=== PATIENT | male | born 1995 | race Caucasian/White ===

== ENCOUNTER 2016-11-24 00:07 | Emergency (ER) | payer MEDICAID, OTHER ==
[~2016-11-24] VITALS: Ht 193 cm; Wt 70.5 kg
[2016-11-24 00:16] VITALS: BP 122/80; PULSE 96; RESP 18; O2SAT 99
--- NOTE | 2016-11-24 00:46 | ED.REPORT ---
HPI-Abd Pain M Under 40 Date of Service Nov 24, 2016 ED Provider: Jd Barajas DO Pt is a 21 y.o. male who presents to the ED accompanied by his girlfriend c/o severe LUQ abdominal pain onset today. Pt reports associated nausea, vomiting, diarrhea, throat pain, and rectal bleeding. He denies a fever and recent travel. His girlfriend states that she was sick last week but with a throat infection. Nursing Notes Stated Complaint: RECTAL BLEEDING/ ABD/HEADACHE Chief Complaint: Male Abdominal Pain Allergies: Coded Allergies: Penicillins (Verified Allergy, Severe, Anaphylaxis, 02/16/16) No Active Prescriptions or Reported Meds General Time Seen by MD: 00:46 Chief Complaint Abdominal pain Hx Obtained From: Patient Arrived By: Walk-in Sudden in Onset?: Yes Onset Occurred: 9 - 12 hours ago Symptom Duration: Since onset Location: : LUQ Quality: Painful Severity: Current: Severe Recent Healthcare: No recent doctor visit, No recent hospitalization Similar Sx Previous: No Past Medical History Past Medical History None reported. Past Surgical History None reported. Family History Father because of EtOH abuse Smoking History Current Every Day Smoker, Unknown if Ever Smoker Social History Alcohol Use: Denies alcohol use Drug Use: THC, Other Other Social History: Local resident Occupation lives with roommates, works at [employer] for 6 weeks. 02/16/2016 Ambulatory Status Independent Review of Systems Rectal bleeding Constitutional: Denies: Fever GI: Reports: Abdominal pain, Diarrhea, Nausea, Vomiting Complete sys rev & neg: except as marked. Physical Exam Initial Vital Signs Vital Signs (First) Date Time Temp Pulse Resp B/P Pulse Ox O2 Delivery O2 Flow Rate FiO2 11/24/16 00:16 37.1 96 18 122/80 99 Room Air Initial VS: Reviewed Head / Eyes: Atraumatic, Normocephalic Extremities: Vascular intact, Neuro intact Skin: Warm, Dry, No cyanosis Neurologic: Alert, Oriented, Nonfocal Psychiatric: Mood/affect normal, Behavior normal, Normal thought content General/Constitutional: Awake, Alert, Well developed, Well hydrated, Well nourished, Not toxic appearing Appearance / Presentation: Positive: Uncomfortable Respiratory / Chest: Atraumatic, Breath sounds NL, No respiratory distress Cardiovascular: Heart rate NL, Regular rhythm, Heart sounds NL, Peripheral circulation NL Abdomen: Atraumatic, Soft, Non-tender, No guarding, No rebound, No distention Bowel Sounds / Distention: Positive: Bowel sounds hyperactive Back: Atraumatic ENT: Atraumatic, Airway patent, Mucous membranes moist, Pharynx NL Interpretation & Diagnostics Lab Results Interpretation Result Diagram: 11/24/16 0046 11/24/16 0046 Test 11/24/16 00:46 11/24/16 00:48 11/24/16 01:28 White Blood Count 7.7th/mm3 (3.8-10.1) Red Blood Count 5.57mil/mm3 (4.40-5.80) Hemoglobin 16.5g/dL (13.8-17.2) Hematocrit 46.4% (41.0-50.0) Mean Corpuscular Volume 83.3fL (81-100) Mean Corpuscular Hemoglobin 29.6pg (27.0-35.0) Mean Corpuscular Hemoglobin Concent 35.6% (32.0-37.0) Red Cell Distribution Width 13.1% (12.3-15.4) Platelet Count 230bil/L (150-400) Neutrophils (%) (Auto) 70.6% (40-74) Lymphocytes (%) (Auto) 17.1% (14-46) Monocytes (%) (Auto) 11.0% (4-12) Eosinophils (%) (Auto) 1.0% (0-5) Basophils (%) (Auto) 0.3% (0-3) Sodium Level 137mEq/L (134-144) Potassium Level 3.8mEq/L (3.5-5.2) Chloride Level 101mEq/L (97-108) Carbon Dioxide Level 24mmol/L (18-29) Blood Urea Nitrogen 15mg/dL (6-20) Creatinine 0.88mg/dL (0.76-1.27) Estimat Glomerular Filtration Rate 116mL/min (>59) Glucose Level 100mg/dL (60-99) Lactic Acid Level 1.2mmol/L (0.4-2.0) Calcium Level 9.1mg/dL (8.5-10.1) Total Bilirubin 0.4mg/dL (0.0-1.2) Aspartate Amino Transf (AST/SGOT) 16U/L (0-50) Alanine Aminotransferase (ALT/SGPT) 12U/L (0-44) Alkaline Phosphatase 81U/L (25-150) Total Protein 7.2g/dL (6.4-8.4) Albumin 4.2g/dL (3.4-5.0) Lipase 23U/L (13-60) Hold Purple Top Tube Received (Received) Hold Blue Top Tube Received (Received) Hold Red Top Tube Received (Received) Hold Glenwood Top Tube Received (Received) Hold Meneses Top Tube Received (Received) Urine Color Dark yellow (YELLOW) Urine Appearance Slightly cloudy Urine pH 6.0 (5.0-8.0) Urine Specific Hunter 1.041 (1.003-1.035) Urine Protein Negativemg/dL (NEG,TRACE) Urine Glucose (UA) Negativemg/dL (NEGATIVE) Urine Ketones Tracemg/dL (NEGATIVE) Urine Occult Blood Negative (NEGATIVE) Urine Nitrite Negative (NEGATIVE) Urine Bilirubin Negative (NEGATIVE) Urine Urobilinogen Normalmg/dL (NORMAL) Urine Leukocyte Esterase Negative (NEGATIVE) Urine RBC 0-2/hpf (0-2) Urine WBC 0-5/hpf (0-5) Urine Epithelial Cells Occasional/hpf (NONE-MOD) Urine Crystals Oxalic acid crystals (NONE Urine Bacteria Few/hpf (NONE-FEW) Urine Hyaline Casts None/lpf (NONE) Urine Granular Casts None seen (NONE SEEN) Urine Waxy Casts None seen (NONE SEEN) Urine Red Blood Cell Casts None seen (NONE SEEN) Urine White Blood Cell Casts None seen (NONE SEEN) Urine Mucus Present (None Seen) Urine Trichomonas None seen (NONE SEEN) Urine Yeast None (NONE SEEN) Urinalysis Comment None Urine Culture Reflexed Not indicated CBC Interpretation CBC normal BMP / CMP Interpretation BMP/CMP normal Urinalysis Interpretation Positive glucose Re-Eval/Medical Decision Med Decision/Clinical Course This is a healthy 21-year-old male who presents with vomiting and diarrhea. He states he has crampiness to say with the diarrhea. His stool has become blood streaked tonight. No hematemesis or bright red blood or melanotic stools. No recent antibiotics or recent travel. On examination his vitals were normal. His abdomen was soft and not at all tender. He was fluid resuscitated symptomatically treated. A stool sample is obtained. After treatment he felt better. His abdomen remained soft and not at all tender. CBC was normal CMP was normal. Stool studies are pending. His exam was benign. Normal labs. Emergent CT scan felt to be not indicated. Be treated symptomatically and will have a recheck tomorrow. Follow up with a stool sample as well. Evidently the stool will be tested in the morning. Source of Hx: Old records Re-Evaluation/Progress : Time of Eval: 02:08 Patient Status: Condition improved Re-Evaluation/Progress Note: Pt rechecked. Pt states he is feeling improved. Discussed plan for dicharge, pt understands and agrees with plan. Counseled Regarding: Diagnosis, Lab results, Need for follow-up, When/why to return to ED Patient Discharge & Departure Primary Impression: Gastroenteritis Additional Impression: Abdominal pain Abdominal location: generalized Qualified Code: R10.84 - Generalized abdominal pain Disposition: Home Discharge Condition All VS Reviewed: Yes Condition: Stable Patient Instructions: Acute Abdominal Pain (ED), Gastroenteritis (ED) Additional Instructions: The stool sample will be tested tomorrow morning. I would like you to call the emergency department by 10 AM and ask for the stool sample results. . If you have certain infection you will need to be on antibiotics. For tonight I would like to drink lots of liquids such as Gatorade. For the crampy pain you may take 1-2 Shawmut every 6 hours. For the nausea you may take 1 Zofran every 8 hours. I think you should be rechecked tomorrow. Go to the urgent care or see your doctor or come back here. Do not drive tonight. Do not drive or drink alcohol or consume acetaminophen while taking the Shawmut. Referrals: Dakota Pan MD (PCP) Dash Attestation Portions of this note were transcribed by Rusty Gallegos. I, Dr. Barajas personally performed the history, physical exam and medical decision-making; I reviewed and confirmed the accuracy of the information in the transcribed note. Signed by : Dash Resendiz, 11/24/16 and 0257. copies to: Dakota Pan MD, Todd P DO Nov 24, 2016 00:46 RUSTY GALLEGOS Nov 24, 2016 00:54
[2016-11-24] MEDS ORDERED: Ondansetron 2 mg/mL 2 mL Inj IVPUSH PRN (00:50)
[2016-11-24] MEDS ORDERED: 0.9% Sodium Chloride 1,000 ML IV ONE (00:50)
[2016-11-24] MEDS ORDERED: HYDROmorphone 0.5 mg/0.5 mL iSecure Syringe IVPUSH PRN (00:50)
[2016-11-24 01:50] LABS: APPEARANCE,URINE SLIGHTLY CLOUDY (CLEAR,HAZY); COLOR,URINE DARK YELLOW (YELLOW)
[2016-11-24 01:51] LABS: OCCULT BLOOD,URINE NEGATIVE (NEGATIVE); UROBILINOGEN,URINE NORMAL (NORMAL)
[2016-11-24 01:55] LABS: BASOPHILS % (AUTO) 0.3 % (0-3); Mean Corpuscular Hemoglobin 29.6 pg (27.0-35.0); Mean Corpuscular Volume 83.3 fL (81-100); NEUTROPHILS % (AUTO) 70.6 % (40-74); Platelet Count 230 bil/L (150-400)
[2016-11-24] MEDS ORDERED: _HYDROcodone/APAP 5-325 mg Tablet PO PRN (02:10)
[2016-11-24] MEDS ORDERED: _Ondansetron ODT 4 mg Tablet PO PRN (02:10)
[2016-11-24] MEDS: 0.9% Sodium Chloride 1,000 ML IV ONE ×2 (02:48→03:05)
[2016-11-24 03:46] VITALS: BP 110/64; PULSE 65; RESP 18; O2SAT 99
== END 2016-11-24 03:49 | disposition home or self-care (01) ==
LOC: SED 00:07
DX: K52.9 Noninfective gastroenteritis and colitis, unspecified (principal); R07.0 Pain in throat; F17.200 Nicotine dependence, unspecified, uncomplicated; Z88.0 Allergy status to penicillin
CPT/HCPCS: 36415; 80053; 81000; 83605; 83690; 85025; 87507; 96361; 96374; 96375; 99285; J1170; J2405; J7030

== ENCOUNTER 2017-01-10 06:22 | Emergency (ER) | payer OTHER ==
[~2017-01-10] VITALS: Ht 190.5 cm; Wt 68.2 kg
[2017-01-10 06:31] VITALS: BP 137/77; PULSE 73; RESP 16; O2SAT 99
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
[2017-01-10] MEDS ORDERED: Trimethoprim-Sulfa 160 mg-800 mg Tablet PO ONE (07:00)
[2017-01-10] MEDS ORDERED: Bacitracin Ointment Packet TOPICAL ONE (07:00)
[2017-01-10] MEDS ORDERED: Bupivacaine 0.5%/EPI 50 mL Inj ONE (07:06)
[2017-01-10] MEDS ORDERED: SULF1TAB7 PO (07:44)
[2017-01-10] MEDS ORDERED: CEPH500C PO (07:44)
[2017-01-10 07:50] VITALS: BP 137/77; PULSE 73; RESP 16; O2SAT 99
== END 2017-01-10 07:50 | disposition home or self-care (01) ==
LOC: SED 06:22
DX: L02.411 Cutaneous abscess of right axilla (principal); F12.10 Cannabis abuse, uncomplicated; Z88.0 Allergy status to penicillin

== ENCOUNTER 2017-01-13 18:30 | Emergency (ER) | payer OTHER ==
[~2017-01-13] VITALS: Ht 190.5 cm; Wt 68.2 kg
[~2017-01-13 18:30] MED LIST: CEPH500C PO; SULF1TAB7 PO
[2017-01-13 18:32] VITALS: BP 127/70; PULSE 85; RESP 16; O2SAT 100
--- NOTE | 2017-01-13 19:14 | ED.REPORT ---
HPI-Psychiatric Illness Date of Service Jan 13, 2017 ED Provider: Elda Caballero MD Patient is a 21 year old male with a history of polysubstance abuse who presents to the ED seeking medical clearance for [facility]. The patient admits to using IV heroin, methamphetamine and marijuana. Patient states that he is "sick of using" but will not elaborate further on his drug use. The patient states that he is hearing voices in his head, which is normal for him. He states that this is his conscience. He denies a mental health diagnosis. Patient denies suicidal ideation or homicidal ideations. The patient has a bed that is being held for him at available at [facility]. Patient is brought in by his mother, who states that she helped him organize his stay at [facility]. Patient does not have any medical complaints at this time. Nursing Notes Stated Complaint: CRISIS Chief Complaint: Substance Abuse Nursing Notes Reviewed: Yes Allergies: Coded Allergies: Penicillins (Verified Allergy, Severe, Anaphylaxis, 01/13/17) Scheduled PRN Ondansetron ODT (Ondansetron ODT) 4 Mg Tab.rapdis 4 MG PO Q6H PRN PRN For Nausea General Time Seen by MD: 18:48 Chief Complaint Other (drug detox) Hx Obtained From: Patient, Other family... 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 Family History Father because of EtOH abuse Smoking History Unknown if Ever Smoker Social History Alcohol Use: Denies alcohol use Drug Use: IV drugs, Meth, THC, Other Other Social History: Local resident Occupation lives with roommates, works at [employer] for 6 weeks. 02/16/2016 Ambulatory Status Independent Review of Systems Constitutional: Denies: Chills, Fever GI: Denies: Nausea, Vomiting Psychiatric: Reports: Hallucinations, auditory, Denies: Homicidal ideation, Suicidal ideation Complete sys rev & neg: except as marked. Physical Exam Initial Vital Signs Vital Signs (First) Date Time Temp Pulse Resp B/P Pulse Ox O2 Delivery O2 Flow Rate FiO2 01/13/17 18:32 36.2 85 16 127/70 100 Room Air Initial VS: Reviewed Head / Eyes: Atraumatic, Normocephalic, PERRL ENT: Conjunctiva normal, No scleral icterus Neck: Supple, Full range of motion Respiratory: Breath sounds normal, Clear to auscultation, No respiratory distress Cardiovascular: Regular rate & rhythm, Heart sounds normal Skin: Warm, Dry, No cyanosis General/Constitutional: Awake, Alert Appearance / Presentation: Positive: Hygiene poor Neurologic: Oriented X3, Speech NL, No motor deficits, No sensory deficits Psychiatric: Not suicidal, Not homicidal Abnormal Thinking / Perception: Positive: Hallucinations, auditory (patient admits to hearing voices) Interpretation & Diagnostics Lab Results Interpretation Test 01/13/17 19:00 Hold Urine Received (Received) Re-Eval/Medical Decision Med Decision/Clinical Course 21-year-old male with past medical history of polysubstance abuse here requesting labs since that he can go to [facility]. Patient is hearing voices, but at this time, I do not feel he is gravely disabled. He has no complaint at this time and has spoken with the social worker masters and is amenable to discharge. His bed is ready at [facility] at 9 AM tomorrow morning. Source of Hx: Old records Re-Evaluation/Progress : Time of Eval: 19:25 Patient Status: Condition improved Re-Evaluation/Progress Note: Patient understands and agrees with the plan to be discharged home. He will go to [facility] at 9am tomorrow. Discharge instructions and follow-up discussed. All questions were addressed. Return to the ED warnings given. Consultation : Consulted With: key worker Call Returned at: 19:19 Note: Spoke with the ED INDUSTRIAL GAS SERVICE HELPER, who states that the patient's bed is available at 9am tomorrow morning. Counseled Regarding: Diagnosis, Lab results, Need for follow-up, When/why to return to ED Discharge & Departure Impression: Primary Impression: Polysubstance abuse Additional Impressions: Narcotic abuse Heroin abuse )( Condition at Discharge: No danger to self, No danger to others, No suicidal ideation, No homicidal ideation Disposition: Home Discharge Condition All VS Reviewed: Yes Condition: Stable Patient Instructions: Narcotic Abuse (ED) Additional Instructions: You have a bed at [facility] tomorrow at 9am. Go there tomorrow morning as planned. You have been prescribed Zofran, use as needed for nausea. Return to the Emergency Department if you develop vomiting, diarrhea, chest pain , shortness of breath, or any other new or concerning symptoms. Your blood pressure was elevated in the Emergency Department today. You should follow-up with your primary care physician about your blood pressure, as you may need to be started on blood pressure medication. Referrals: [facility] Scribe Attestation Portions of this note were transcribed by Jessica Briones. I, Dr. Caballero personally performed the history, physical exam and medical decision-making; I reviewed and confirmed the accuracy of the information in the transcribed note. Signed by: Dash Leal, 01/13/20179 Elda Caballero MD Jan 13, 2017 19:14 Jessica Briones Jan 13, 2017 19:22
[2017-01-13] MEDS ORDERED: ONDA4TAB12 PO (19:34)
[2017-01-13 19:42] VITALS: BP 127/70; PULSE 85; RESP 16; O2SAT 100
== END 2017-01-13 19:42 | disposition home or self-care (01) ==
LOC: SED 18:30
DX: F11.10 Opioid abuse, uncomplicated (principal); F15.20 Other stimulant dependence, uncomplicated; F12.10 Cannabis abuse, uncomplicated; Z88.0 Allergy status to penicillin

== ENCOUNTER 2017-01-20 11:43 | Emergency (ER) | payer OTHER ==
[~2017-01-20] VITALS: Ht 190.5 cm; Wt 70.5 kg
[~2017-01-20 11:43] MED LIST changes: -CEPH500C PO; +ONDA4TAB12 PO; -SULF1TAB7 PO
[2017-01-20 11:44] VITALS: BP 146/85; PULSE 87; RESP 15; O2SAT 97
--- NOTE | 2017-01-20 11:50 | ED.REPORT ---
HPI-Rash / Abscess Date of Service Jan 20, 2017 ED Provider: Dr. Mchugh Pt is a 21 y/o male w/ a hx of IV drug abuse presenting to the ED c/o left jaw swelling and pain onset about 3 days ago. His mother attempted to drain his swelling last night from the outside with bloody purulent fluid expressed. Pt denies fever, chills, nausea, vomiting, dysphagia. He had one other skin infection previously on the right jaw which he states was from a spider bite and was not MRSA positive. Nursing Notes Stated Complaint: SWOLLEN JAW Chief Complaint: Skin Rash/Abscess Nursing Notes Reviewed: Yes Allergies: Coded Allergies: Penicillins (Verified Allergy, Severe, Anaphylaxis, 01/20/17) Scheduled Cephalexin (Keflex) 500 Mg Capsule 500 MG PO QID Sulfamethoxazole/Trimeth 800-160 mg (Bactrim DS) 1 Each Tablet 1 TABLET PO BID Scheduled PRN Hydrocodone-Acetaminophen 5-325 mg (Hydrocodone-Acetaminophen 5-325 mg) 1 Each Tablet 1 TABLET PO Q4H PRN PRN For Pain Ondansetron ODT (Ondansetron ODT) 4 Mg Tab.rapdis 4 MG PO Q6H PRN PRN For Nausea General Time Seen by MD: 11:50 Chief Complaint Abscess Hx Obtained From: Patient Arrived By: Walk-in Onset Occurred: 3 days ago Symptom Duration: Since onset Location: : Head/face Quality: Painful Severity: Current: Moderate Severity: Maximum: Moderate Similar Sx Previous: Yes Past Medical History Past Medical History Notes: ED visit for diarrhea 10/2016 (cryptosporidium positive) Past Medical History IV heroin and methamphetamine abuse Past Surgical History None reported. Family History Father because of EtOH abuse Smoking History Current Every Day Smoker Social History Alcohol Use: Denies alcohol use Drug Use: IV drugs, Meth, THC, Other Other Social History: Local resident Occupation lives with roommates, works at [employer] for 6 weeks. 02/16/2016 Ambulatory Status Independent Review of Systems Review of Systems Note: +facial swelling and pain Constitutional: Denies: Chills, Fever GI: Denies: Abdominal pain, Dysphagia, Nausea, Vomiting Complete sys rev & neg: except as marked. Physical Exam Initial Vital Signs Vital Signs (First) Date Time Temp Pulse Resp B/P Pulse Ox O2 Delivery O2 Flow Rate FiO2 01/20/17 11:44 36.4 87 15 146/85 97 Room Air Initial VS: Reviewed Head / Eyes: Atraumatic, Normocephalic, PERRL Neck: Supple, Full range of motion Respiratory: Breath sounds normal, Clear to auscultation, No respiratory distress Cardiovascular: Regular rate & rhythm, Heart sounds normal, Intact distal pulses Abdomen / GI: Soft, No distention Extremities: Vascular intact, Neuro intact, No swelling, No tenderness Neurologic: Alert, Oriented, Nonfocal Psychiatric: Mood/affect normal, Behavior normal, Normal thought content ENT: Atraumatic, Airway patent, Mucous membranes moist, Pharynx NL, No pooling of secretions, Gums/dentition NL Swelling and induration of the left cheek. Small area of ulceration No tenderness to gums Procedures Incision & Drainage Abscess I & D Abscess: Abscess confirmed with US prior to procedure Using an 18 gauge needle the abscess was aspirated and sent for culture. Time: 13:00 Procedure Performed by: ED physician Consent / Setup / Site Prep: Consent from patient, Time-out performed, Hand hygiene observed, Stand sterile technique Location of Abscess: Left cheek Skin Preparation Agent: Shurclens Local Anesthesia: Lidocaine w epi 1% Pus Drained: Medium, Purulent discharge, Bloody Post-Procedure / Complications: Culture obtained, No complications, Condition improved, Tolerated procedure well, Patient stable Re-Eval/Medical Decision Med Decision/Clinical Course As patient had an abscess on the cheek I did not want to use an 11 blade and leave it open with packing. I am trying to prevent a large scar and I believe that given the small size of the abscess a full aspiration followed by good antibiotic therapy should completely resolve his infection. Patient felt much better after the abscess was drained and was agreeable with the plan. He was concerned about getting his medications paid for and after working with social work he was able to identify his insurance number. He has a history of anaphylactic type reaction to antibiotics but he has had Keflex and Bactrim before and has not had any reaction. He will follow-up with the urgent care/ER for recheck as he does not have a PCP locally Re-Evaluation/Progress : Time of Eval: 13:17 Re-Evaluation/Progress Note: Pt rechecked. Informed pt of plan for treatment. Pt understands and agrees with plan for treatment. F/U and RTER warnings given. All questions addressed. Counseled Regarding: Diagnosis, Need for follow-up, When/why to return to ED Discharge & Departure Impression: Primary Impression: Abscess of cheek Disposition: Home Discharge Condition All VS Reviewed: Yes Condition: Stable Patient Instructions: Abscess (ED) Additional Instructions: The abscess was aspirated today and sent for culture. Take Bactrim and Keflex as prescribed. You can use ibuprofen as needed for pain , hydrocodone for breakthrough pain Return to the emergency department for signs of worsening infection: worsening swelling, pain, redness, discharge, high fever, persistent vomiting, profound weakness, trouble swallowing, trouble breathing, or for other concerning symptoms. Follow-up with a primary care doctor or Urgent Care early next week for a recheck. Referrals: [facility] Scribe Attestation Portions of this note were transcribed by Luciano Gavin. I, Dr. Mchugh personally performed the history, physical exam and medical decision-making; I reviewed and confirmed the accuracy of the information in the transcribed note. Signed by Dash Stevenson, 01/20/17 - 1218 Orville Mchugh DO Jan 20, 2017 11:50 LUCIANO GAVIN Jan 20, 2017 12:10
[2017-01-20] MEDS ORDERED: Lidocaine 1%-Epi 1:100,000 20 mL Inj ONE (12:29)
[2017-01-20] MEDS ORDERED: HYDROcodone-APAP 5-325 mg Tablet PO ONE (13:15)
[2017-01-20] MEDS ORDERED: Trimethoprim-Sulfa 160 mg-800 mg Tablet PO ONE (13:15)
[2017-01-20] MEDS ORDERED: SULF1TAB7 PO (13:18)
[2017-01-20] MEDS ORDERED: CEPH-512 PO (13:18)
[2017-01-20] MEDS ORDERED: HYDR-4003 PO (13:18)
== END 2017-01-20 13:45 | disposition home or self-care (01) ==
LOC: SED 11:43
DX: L02.01 Cutaneous abscess of face (principal); F17.200 Nicotine dependence, unspecified, uncomplicated; Z88.0 Allergy status to penicillin
CPT/HCPCS: 10060; 87070; 87075; 87205; 96372; 99284; J1885

== ENCOUNTER 2017-04-12 22:16 | Emergency (ER) | payer OTHER ==
[~2017-04-12 22:16] MED LIST changes: +CEPH-512 PO; +HYDR-4003 PO; +SULF1TAB7 PO
== END 2017-04-12 23:07 | disposition left against medical advice (07) ==
LOC: SED 22:16
DX: Z00.8 Encounter for other general examination (principal); Z53.21 Procedure and treatment not carried out due to patient leaving prior to being seen by health care provider

== ENCOUNTER 2017-04-12 23:56 | Inpatient (IN) | payer MEDICAID, OTHER ==
[~2017-04-12] VITALS: Ht 193 cm; Wt 67.7 kg
[2017-04-13 00:01] VITALS: BP 113/62; PULSE 109; RESP 14; O2SAT 100
--- NOTE | 2017-04-13 00:09 | ED.REPORT ---
HPI-Psychiatric Illness Date of Service Apr 13, 2017 ED Provider: Dr. Pinto Pt is a 21 year old male with a hx of IV drug use and depression presenting to the ED for a psych evaluation requesting to go to [facility]. Pt reports that he just got out of rehab in [place] for 2 and a half weeks, and left early [facility] 1 month ago and relapsed. He states that he is homeless and tired of being outside. Pt last used heroin 4 hours ago. He denies any other symptoms at this time. He is not being seen by a mental health professional as an outpatient. Pt states that he has intentionally overdosed on heroin in the past. Nursing Notes Stated Complaint: PSYCH EVAL Chief Complaint: Psychiatric Complaint Nursing Notes Reviewed: Yes Allergies: Coded Allergies: Penicillins (Verified Allergy, Severe, Anaphylaxis, 01/20/17) Scheduled Cephalexin (Keflex) 500 Mg Capsule 500 MG PO QID Sulfamethoxazole/Trimeth 800-160 mg (Bactrim DS) 1 Each Tablet 1 TABLET PO BID Scheduled PRN Hydrocodone-Acetaminophen 5-325 mg (Hydrocodone-Acetaminophen 5-325 mg) 1 Each Tablet 1 TABLET PO Q4H PRN PRN For Pain Ondansetron ODT (Ondansetron ODT) 4 Mg Tab.rapdis 4 MG PO Q6H PRN PRN For Nausea General Time Seen by MD: 00:08 Chief Complaint Other (Substance abuse) Hx Obtained From: Patient Arrived By: Walk-in Onset Occurred: Just prior to arrival Symptom Duration: Since onset Severity: Current: No pain currently Severity: Maximum: No pain Recent Healthcare: No recent doctor visit, No recent hospitalization Similar Sx Previous: Yes Risk-Psychiatric Illness Suicide Risk Stratification Suicide Risk Factors - Adult: : Prior psych admission: Substance abuseNo: Alcohol use RF Statements: Risk factors reviewed Past Medical History Past Medical History Notes: ED visit for diarrhea 10/2016 (cryptosporidium positive) Past Medical History IV heroin Depression Previous suicide attempts by heroin overdose Past Surgical History None reported. Family History Father because of EtOH abuse Smoking History Current Every Day Smoker Social History Alcohol Use: Denies alcohol use Drug Use: IV drugs, THC, Other (Heroin) Other Social History: Local resident Occupation lives with roommates, works at [employer] for 6 weeks. 02/16/2016 Ambulatory Status Independent Review of Systems Constitutional: Denies: Weakness - generalized Respiratory: Denies: Wheezing GI: Denies: Vomiting Psychiatric: Reports: Agitation Complete sys rev & neg: except as marked. Physical Exam Initial Vital Signs Vital Signs (First) Date Time Temp Pulse Resp B/P Pulse Ox O2 Delivery O2 Flow Rate FiO2 04/13/17 00:01 36.3 109 14 113/62 100 04/13/17 03:33 Room Air Initial VS: Reviewed, Vital signs abnormal Head / Eyes: Atraumatic, Normocephalic, PERRL ENT: Mucous membranes moist, Conjunctiva normal, No scleral icterus Neck: Supple, Non-tender, Full range of motion Respiratory: Breath sounds normal, Clear to auscultation, No respiratory distress Cardiovascular: Regular rate & rhythm, Heart sounds normal, Intact distal pulses Abdomen / GI: Soft, Non-tender, No guarding, No rebound, No distention Extremities: Vascular intact, Neuro intact, No swelling, No tenderness General/Constitutional: Awake Alertness: Positive: Somnolent Sleeping soundly but aroused with difficulty. Neurologic: Oriented X3, Speech NL, No motor deficits, No sensory deficits, Memory NL Psychiatric: Not homicidal Abnormal Mood/Affect: Positive: Depressed Abnormal Thinking / Perception: Positive: Suicidal, no plan Skin: Warm, Dry Abrasion on left forehead. Several pick sores on chin and neck. No abscesses. Interpretation & Diagnostics Lab Results Interpretation Result Diagram: 04/13/17 0210 04/13/17 0210 Test 04/13/17 02:10 04/13/17 02:15 White Blood Count 8.7th/mm3 (3.8-10.1) Red Blood Count 4.66mil/mm3 (4.40-5.80) Hemoglobin 13.4g/dL (13.8-17.2) Hematocrit 39.3% (41.0-50.0) Mean Corpuscular Volume 84.3fL (81-100) Mean Corpuscular Hemoglobin 28.8pg (27.0-35.0) Mean Corpuscular Hemoglobin Concent 34.1% (32.0-37.0) Red Cell Distribution Width 13.3% (12.3-15.4) Platelet Count 226bil/L (150-400) Neutrophils (%) (Auto) 64.4% (40-74) Lymphocytes (%) (Auto) 19.9% (14-46) Monocytes (%) (Auto) 12.6% (4-12) Eosinophils (%) (Auto) 3.0% (0-5) Basophils (%) (Auto) 0.1% (0-3) Sodium Level 139mEq/L (134-144) Potassium Level 4.1mEq/L (3.5-5.2) Chloride Level 101mEq/L (97-108) Carbon Dioxide Level 24mmol/L (18-29) Blood Urea Nitrogen 17mg/dL (6-20) Creatinine 0.53mg/dL (0.76-1.27) Estimat Glomerular Filtration Rate 209mL/min (>59) Glucose Level 104mg/dL (60-99) Calcium Level 8.7mg/dL (8.5-10.1) Total Bilirubin 0.3mg/dL (0.0-1.2) Aspartate Amino Transf (AST/SGOT) 18U/L (0-50) Alanine Aminotransferase (ALT/SGPT) 14U/L (0-44) Alkaline Phosphatase 78U/L (25-150) Total Protein 6.6g/dL (6.4-8.4) Albumin 3.9g/dL (3.4-5.0) Thyroid Stimulating Hormone (TSH) 0.686uIU/mL (0.450-4.500) Hold Meneses Top Tube Received (Received) Hold Urine Received (Received) Lab values outside NL range: no clinical significance. Re-Eval/Medical Decision Med Decision/Clinical Course 21-year-old male who has been overly stressed by a multitude of psychosocial stressors including living on the street, heroin use, and depression with suicidal ideation. Screening labs were all unremarkable. His family reportedly talked to [facility] yesterday there may be of benefit, there. Recommend contacting [facility] for evaluation treatment. Re-Evaluation/Progress : Time of Eval: 06:00 Patient Status: Condition improved Re-Evaluation/Progress Note: Care transferred to Dr. Smith Counseled Regarding: Diagnosis, Lab results, Need for follow-up, When/why to return to ED Discharge & Departure Impression: Primary Impression: Depression Depression Type: reactive depression Qualified Code: F32.9 - Major depressive disorder, single episode, unspecified Additional Impressions: Opioid dependence Substance use status: uncomplicated Qualified Code: F11.20 - Opioid dependence, uncomplicated Methamphetamine abuse Disposition: ADMITTED TO HOSPITAL Discharge Condition All VS Reviewed: Yes Condition: Improved Referrals: [facility] (PCP) [facility] Care Transferred to: Care Transferred to Dr. Smith Care Transferred at: 06:00 Dash Attestation Portions of this note were transcribed by Anabel Wu. I, Dr. Pinto personally performed the history, physical exam and medical decision-making; I reviewed and confirmed the accuracy of the information in the transcribed note. Signed by: Dash Hale, 04/13/17 and 0600. copies to: [facility] Brennan Pinto MD Apr 13, 2017 00:09 ANABEL WU Apr 13, 2017 00:55
[2017-04-13 02:27] LABS: BASOPHILS % (AUTO) 0.1 % (0-3); MONOCYTES % (AUTO) 12.6 % (4-12); Mean Corpuscular Hemoglobin 28.8 pg (27.0-35.0); Mean Corpuscular Volume 84.3 fL (81-100); NEUTROPHILS % (AUTO) 64.4 % (40-74); Platelet Count 226 bil/L (150-400)
[2017-04-13 03:33] VITALS: BP 106/56; PULSE 61; RESP 15; O2SAT 99
[2017-04-13 08:39] VITALS: BP 122/49; RESP 16; O2SAT 100
[2017-04-13 14:49] VITALS: BP 115/62; PULSE 65; RESP 20; O2SAT 98
[2017-04-13 20:21] VITALS: BP 117/59; PULSE 62; RESP 16; O2SAT 98
[2017-04-13] MEDS ORDERED: hydrOXYzine Pamoate 25 mg Capsule PO PRN (20:50)
[2017-04-13] MEDS ORDERED: Magnesium Hydroxide 10 mL Oral Concentration PO PRN (20:50)
[2017-04-13] MEDS ORDERED: Alum-Mag Hydrox-Simeth 30 mL Suspension PO PRN (20:50)
[2017-04-13] MEDS ORDERED: Benzocaine-Menthol Lozenge 2/Pkg PO PRN (20:50)
[2017-04-13] MEDS ORDERED: cloNIDine 0.1 mg Tablet PO PRN (20:55)
--- NOTE | 2017-04-14 00:51 | NUR ---
Nursing Admit note Pt arrival via wheelchair from our ED with security and ED staff at 2030. Pt authorized for three days through [facility]. Pt reporting life long hx of depression with increasing suicidal ideation. Pt reports two year history of homelessness and polysubstance abuse from late childhood. Father committed suicide by heroin. Pt reports he would commit suicide by heroin if he could afford it. Pt with one previous inpt tx at [facility] in [place] for dual diagnosis, but patient chose to leave AMA because it was to sabianism. Pt reports previous attempts in past but would not talk about it at this time. Pt signed all paperwork and agrees to remain safe. Pt Utox positive for meth, heroin, THC. Pt currently on zero medications. Pt denies prospects for housing. Pt rates anxiety at 5/10, depression 10/10, denies homicidal ideation or hallucination, would not rate suicidal ideation. Pt reports he does not withdrawal from street drugs. Pt changed into hospital attire and had snack before returning to room for sleep.
--- NOTE | 2017-04-14 03:06 | NUR ---
ADMIT/NOC OBS Pt arrived to unit at 2030 from our ER. He signed all paperwork and was oriented to unit. Affect flat, no eye contact, mumbled responses when addressed with minimal interaction. Asleep at 2200. Observed Q15 as ordered.
--- NOTE | 2017-04-14 09:24 | PCM.DIMED ---
Discharge Instructions Date of Service Apr 14, 2017 Dates of Hospitalization Apr 13, 2017 at 20:18 Discharge Diagnosis Discharge Diagnosis Polysubstance Use Disorder Opiates, Meth and THC Substance Induced Mood DO Diet Discharge Diet: No restrictions Activity Discharge Activity: No restrictions Reddy Arciniega DO Apr 14, 2017 09:23
[2017-04-14 12:02] VITALS: BP 127/76; PULSE 78; RESP 16
--- NOTE | 2017-04-14 13:07 | HP ---
[address] [address] HISTORY AND PHYSICAL PATIENT: HARRIETT WHITT V : 1995 MR#: [id number] ADMIT: 04/13/2017 JOB ID: [id number] IDENTIFICATION OF PATIENT: The patient is a 21-year-old male admitted on a voluntary basis through the emergency department with evidence of increasing concern of feelings of hopelessness, worthlessness and helplessness. The patient reportedly has a long-term history of polysubstance use and recently left AMA at a chemical dependency treatment program in [place]. The patient reportedly is homeless at this time but is open to considerations of additional interventions including options of Suboxone replacement. CHIEF COMPLAINT: "I just want to get out of here, this is not the right place for me." This per patient report. HISTORY OF PRESENT ILLNESS: As stated above, the patient is a 21-year-old male who reportedly was seen through the emergency department. He evidently was requesting a possible admission to [facility] dual diagnosis unit. The patient reportedly had identified that he had been struggling with thinking about wanting , kill himself and taking an overdose of heroin. He indicates that he has a long-term history of heroin addiction and uses 20-30 dollars per day. He reports that his last usage was within the past 24 hours. He readily identifies that he has been connected with [facility] in the past, outpatient programming and recommendation for advancement into [facility] followup. He indicated that once he got there he felt that it was way too anabaptism and he felt that it was something that he could not commit to. The patient readily identifies a willingness to consider additional options of Suboxone replacement therapy and I discussed at length possible institution through [facility] which has offices both in [place] and [place]. In reviewing his current status of depression, the patient openly admitted to feelings of hopelessness, worthlessness, helplessness. Identified long-term history of heroin addiction beginning in his early teens. He reports that he consumes 20-30 dollars per day. He admitted to usage of methamphetamine periodically and was unaware that his urine tox screen was positive for methamphetamine, but admitted to usage within the past 72 hours. He admitted to using 1-2 bowls of marijuana per day as well. The patient denied any expressed suicidal intent, plan at this time stating that if he can get the help for his drug problem he really knows that he will get back on track. He indicates that he has no prior history of psychiatric involvement. Denied any previous trials of psychotropic agents and is opposed to initiation of antidepressants. In meeting with the patient, I did feel that there was no grounds to pursue DMHP or [facility]ASH status and I have suggested a connection with the [facility] in [place] with transition to the [facility] for housing. The patient was agreeable for such and bus vouchers with information provided for followup was provided. PAST MEDICAL HISTORY: Is substantial for allergies to PENICILLIN. His current medications include none. He denies any recent surgeries, fractures, head trauma. REVIEW OF SYSTEMS: Was positive for some wound care. I will defer the reader to the emergency department report. PAST PSYCHIATRIC HISTORY: None. SOCIAL HISTORY: The patient is homeless, unemployed. He indicated that he has not graduated from high school, attended his senior year at [employer] while living with a grandmother who lives in [place] at this time. He denies any history of trauma abuse. He has limited contact with his family. He reports that his biological father committed suicide with overdose on heroin and that his mother has also struggled with chemical dependency issues. FAMILY HISTORY: Positive for the above information. DEVELOPMENT HISTORY: As noted. MENTAL STATUS EXAMINATION: General appearance: The patient was cooperative, polite. He admitted to a significant desire to discharge. He is willing to pursue outpatient interventions. His speech is of normal tone, frequency and volume. His mood is neutral. Affect was congruent. His thought process showed no evidence of racing thoughts, flight of ideas, loose or disconnected thinking. Thought content: He denied any evidence of expressed suicidal ideation, intent or plan. He admitted to thoughts of overdosing on heroin in the past but stated that as long as he can get help, he really does not feel that that is even an option. He denies any active hallucinations, delusions. He was alert, oriented to time and place. Attention and concentration intact. Memory intact in the short term, local company intermodal truck driver, recent. Insight and judgment are fair. IMPRESSIONS: AXIS I 1. Polysubstance use disorder with opiates, methamphetamine and THC. 2. Substance induced mood disorder. AXIS II Deferred. AXIS III None. AXIS IV Stressors are noted for chronic substance use. AXIS V Global assessment of functioning of current 40. PLANS: 1. Recommendations to discharge. 2. Follow up recommendations with [facility] [place] for Suboxone replacement therapies. Numbers and location were given to the patient to call on Sunday. 3. Referrals made to the [facility] for housing. 4. The patient was given a voucher for [facility] commute. Bus will be leaving at 2:10 this afternoon. 5. Confirmation was noted that mother will pecan picker the patient and bring to the [facility] station.
--- NOTE | 2017-04-14 13:12 | NUR ---
[id number]. nurs. Discharge note. Pt appeared to sleep for more than 8 hours last night and once up and then requesting discharge stating that he could maintain his safety. Pt discussed with his pxs and was provided with resource info re. prison and chem dep tx options in the area he wished to relocate to in [place] and providered order for discharge and completed discharge instruction. Pt spoke to his mother who agreed to provide transport to bus station, and spoke to staff stating that she believed that her son wanted to follow through with accessing help with chem. dep. and pt given bus ticket to [place]. Pt denying SI , stating will maintain safety completed safety plan in cursory manner with poor focus. Pt wanting to leave area due to px associations re. chem. dep. restless, discharged to await mothers arrival, and collect belonging from family and verbalized understanding of discharge plan, and discharged at 1130.
== END 2017-04-14 11:30 | disposition home or self-care (01) | DRG 897 ==
LOC: SED 23:56 → MHC 04-13 20:18
PROVIDERS: ADMIT Psychiatry & Neurology Psychiatry; ATTEND Psychiatry & Neurology Psychiatry
DX: F19.14 Other psychoactive substance abuse with psychoactive substance-induced mood disorder (principal); F17.210 Nicotine dependence, cigarettes, uncomplicated; Z59.0 Homelessness; Z91.19 Patient's noncompliance with other medical treatment and regimen

== ENCOUNTER 2017-07-24 09:12 | Emergency (ER) | payer MEDICAID ==
[2017-04-13 20:21] VITALS: O2SAT 98
[2017-07-24 10:16] VITALS: BP 112/74; PULSE 98; RESP 16; O2SAT 99
== END 2017-07-24 10:41 | disposition left against medical advice (07) ==
LOC: SED 09:12
DX: F99 Mental disorder, not otherwise specified (principal); Z53.29 Procedure and treatment not carried out because of patient's decision for other reasons